=== PATIENT | male | born 1965 | race Caucasian/White ===

== ENCOUNTER 2025-01-10 12:09 | Emergency (ER) | payer SELFPAY ==
[2025-01-10 12:26] VITALS: PULSE 98; RESP 18; O2SAT 98
[2025-01-10 12:56] VITALS: BP 149/94; PULSE 85; RESP 18; TEMP 36.7; O2SAT 98
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
[2025-01-10] MEDS: ACETAMINOPHEN 500 MG TABLET 1000 MG PO (14:03)
--- NOTE | 2025-01-10 15:14 | PC.NURSE ---
called Sky to inform him pt. wants to sign out AMA, Sky states that is fine. Pt. signed AMA form. Pt. states he will return if he needs to. Pt. walked out of ER, no s/s of distress noted.
== END 2025-01-10 15:15 | disposition left against medical advice (07) ==
LOC: SERX 14:11
PROVIDERS: Emergency Provider Emergency Medicine
DX: Z04.1 Encounter for examination and observation following transport accident (principal); Z53.29 Procedure and treatment not carried out because of patient's decision for other reasons
CPT/HCPCS: 99281; A9270